=== PATIENT | male | born 1980 | race Caucasian/White ===

== ENCOUNTER 2017-03-04 17:40 | Emergency (ER) | payer OTHER ==
[2017-03-04 17:45] VITALS: BP 127/88; PULSE 72; RESP 16; TEMP 98.2; O2SAT 98
--- NOTE | 2017-03-04 17:45 | EDPHY ---
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 Complaining of skin avulsion, abrasion and pain at same location. No paresthesia. No sensory or motor deficit. PHYSICAL EXAM (Prior to examination, patient consented to physical exam, hands were washed and my usual and customary physical exam procedures followed) 1) GENERAL: Well-developed, well-nourished, alert and oriented. Appears to be in no acute distress. 2) HEAD: Normocephalic 3) HEENT: sclera anicteric 4) LUNGS: Breathing comfortably. 5) SKIN: right index finger distal phalanx dorsal aspect superficial skin avulsion attached by less than 1 mm of tissue with nonviable flap which is superficial. 6) MUSCULOSKELETAL: tender to palpation distal phalanx. No shortening no malrotation. Normal cascading of digit. flexor extensor function independently tested at the MCP PIP D IP and no deficits appreciated on exam 7) NEUROLOGIC: Full sensation and two-point discrimination distally (Misty Worthy) Constitutional: Initial Vital Signs Temperature (C) 36.8 C 03/04/17 17:41 Heart Rate 72 03/04/17 17:41 Respiratory Rate 16 03/04/17 17:41 Blood Pressure 127/88 H 03/04/17 17:41 O2 Sat (%) 98 03/04/17 17:41 O2 Delivery Mode Room Air Allergies/Adverse Reactions: No Known Allergies Allergy (Unverified 03/04/17 17:45) Home Medications: Medication Instructions Recorded NK [No Known Home Meds] 03/04/17 MDM/Departure - MDM Imaging Results: Imaging Impressions Finger X-Ray 03/04/17 17:46 Impression: Negative radiographs of the right index finger. Images reviewed myself (Misty Worthy) Procedures: Procedure: Splint And aluminum cage splint was applied by ER windows deployment technician after the piece of nonviable flap tissue was removed . This will be allowed to heal via secondary intention. After application of the splint I returned and re- examined the patient. The splint was adequately immobilizing the joint and distal to the splint the patient's circulation and sensation were intact. Patient shows no signs of compartment syndrome. Was given orthopedic precautions. (Misty Worthy) ED Course/Re-evaluation: The patient was evaluated and managed by the physician elementary assistant teacher. I have reviewed this chart and I agree with the findings and plan of care as documented , as indicated by my signature. I am the secondary supervising physician. ( Barb Gilmore) - Depart Disposition: Home, Routine, Self-Care Clinical Impression: Injury, crush, finger Qualifiers: Encounter type: initial encounter Qualified Code(s): S67.10XA - Crushing injury of unspecified finger(s), initial encounter Condition: Good Instructions: Crush Injury (ED) Additional Instructions: Return to the ER immediately if you experience discoloration, have worsening pain, numbness, tingling, or any other symptoms that concern you. If you received x-rays in the emergency department today, be advised, that ligamentous , tendon, muscular, and other non-bony injury cannot be fully ruled out. Try to keep your affected extremity elevated above the level of your chest, and keep cold packs on the affected area, for the next 48 hours. Referrals: Work Comp Referral [facility] [place] [Outside] - 03/07/17
== END 2017-03-04 19:04 | disposition home or self-care (01) ==
DX: S67.190A Crushing injury of right index finger, initial encounter (principal); W23.1XXA Caught, crushed, jammed, or pinched between stationary objects, initial encounter; Y92.69 Other specified industrial and construction area as the place of occurrence of the external cause; Y99.0 Civilian activity done for income or pay